=== PATIENT | female | born 1970 | race Caucasian/White ===

== ENCOUNTER 2024-01-13 08:37 | Emergency (ER) | payer BC ==
[2024-01-13] MEDS ORDERED: Neomycin/Polymyxin/HC Otic Solution 10 ML BOT ONE (09:06)
== END 2024-01-13 09:21 | disposition home or self-care (01) ==
LOC: CSHERS 08:37
DX: H66.91 Otitis media, unspecified, right ear (principal); H60.91 Unspecified otitis externa, right ear; F17.200 Nicotine dependence, unspecified, uncomplicated
CPT/HCPCS: 99282